=== PATIENT | female | born 1965 | race Caucasian/White ===

== ENCOUNTER → 2018-07-06 09:23 | Outpatient (CLI) | payer OTHER, SELFPAY ==
[2018-07-06 10:03] LABS: Absolute Lymphocyte Count 1.74 X10^3/ul (0.83-4.51); Basophil# 0.04 X10^3/uL; Basophil% 0.6 % (0-1); Eosinophil# 0.24 X10^3/uL; Eosinophils% 3.8 % (0-5); Hematocrit 41.4 % (37-47); Hemoglobin 13.9 g/dl (12.0-15.0); Lymphocyte # 1.74 X10^3/ul (4.0); Lymphocyte % 27.9 % (19-41); Mean Corp Hgb Conc 33.6 g/gl (32-36); Mean Corpuscular Hgb 31.3 pg (27.0-32.0); Mean Corpuscular Volume 93.2 fL (81-99); Mean Platelet Vol. 10.2 fl (6.2-12.0); Monocyte# 0.25 X10^3/uL; Neutrophil # 3.96 X10^3/uL (2.7-7.7); Neutrophil % 63.5 % (47-70); POSITIVE COUNT NO; POSITIVE DIFFERENTIAL NO; POSITIVE MORPHOLOGY NO; Platelet Count 268 K/mm3 (150-450); RBC Distribution Width CV 13.2 % (11.6-14.6); RBC Distribution Width SD 44.7 fl (35.1-43.9); Red Blood Count 4.44 M/mm3 (4.2-5.4); White Blood Count 6.2 K/mm3 (4.4-11.0)
[2018-07-06 10:48] LABS: Anion Gap 12 (5-15); BUN 17 mg/dL (7-18); Chloride 103 mmol/L (98-107); Creatinine, Serum 0.74 mg/dL (0.55-1.02); EST Glomerular Filtration Rate 87 mL/min (>60); Est Glom Filt Rate - Afr Amer 106 mL/min (>60); Glucose 242 mg/dL (74-106); Sodium Level 139 mmol/L (136-145); Thyroid Stim Hormone (TSH) 1.03 uIU/mL (0.358-3.74)
== END ==
PROVIDERS: Family Provider Family Medicine; PCP Family Medicine; Visit Provider Internal Medicine Cardiovascular Disease
DX: I48.0 Paroxysmal atrial fibrillation (principal)
CPT/HCPCS: 36415; 80048; 84443; 85025

== ENCOUNTER → 2019-09-22 | Outpatient (CLI) | payer OTHER, SELFPAY ==
[2019-09-22 10:16] VITALS: BMI 32.1
[2019-09-22 12:35] LABS: Insulin 16.2 mU/L (2.6-37.6)
[2019-09-22 12:41] LABS: AST(SGOT) 17 U/L (15-37); Alanine Aminotransfer ALT/SGPT 31 U/L (13-56); Albumin, Serum 4.1 g/dL (3.2-5.0); Alkaline Phosphatase 71 U/L (45-117); Anion Gap 9 (5-15); BUN 12 mg/dL (7-18); BUN/Creat Ratio 18.1 RATIO (10-20); Chloride 105 mmol/L (98-107); Cholesterol 198 mg/dL (200); Creatinine, Serum 0.66 mg/dL (0.55-1.02); EST Glomerular Filtration Rate 99 mL/min (>60); Est Glom Filt Rate - Afr Amer 119 mL/min (>60); Globulin 3.6 g/dL (2.2-4.2); Glucose 112 mg/dL (74-106); High Density Lipoprotein 43 mg/dL; Potassium 3.8 mmol/L (3.5-5.1); Protein, Total 7.7 g/dL (6.4-8.2); Sodium Level 142 mmol/L (136-145); Triglycerides 127 mg/dL; Very Low Density Lipoprotein 25 mg/dL (5-40)
== END | disposition home or self-care (01) ==
LOC: LAB 11:27
PROVIDERS: Family Provider Family Medicine; PCP Family Medicine; Referring Provider Internal Medicine Cardiovascular Disease; Visit Provider Internal Medicine Cardiovascular Disease
DX: I48.0 Paroxysmal atrial fibrillation (principal)
CPT/HCPCS: 36415; 80048; 80061; 80076; 83525

== ENCOUNTER 2025-07-18 09:27 | Emergency (ER) | payer OTHER, SELFPAY ==
[2025-07-18 09:28] VITALS: BP 179/96; PULSE 89; RESP 17; TEMP 36.6; O2SAT 100; BMI 34.2
--- NOTE | 2025-07-18 09:40 | EKG12_ITS ---
Test Reason : ARRYTH Blood Pressure : */* mmHG Vent. Rate : 93 BPM Atrial Rate : * BPM P-R Int : * ms QRS Dur : 92 ms QT Int : 376 ms P-R-T Axes : * 19 9 degrees QTcB Int : 467 ms Atrial fibrillation Nonspecific T wave abnormality Abnormal ECG Confirmed by DELIO RODRIGUEZ ([id number]), assistant editor AMIRAH HELLER ([id number]) on 07/19/2025 1:56:07 PM Referred By: HEATHER Confirmed By: DELIO RODRIGUEZ
--- NOTE | 2025-07-18 09:43 | EX.ED.DYSGE1 ---
HPI History of Present Illness Chief Complaint: Edema Narrative Narrative: 60-year-old female past medical history of hypertension takes lisinopril 10 mg in the morning and 10 mg at night presents with tongue swelling since this morning at around 6-6 30, approximately 3 hours ago. She relates history that she usually takes lisinopril, however she has not taken it over the last 36 hours or so. She stopped taking it Thursday evening because she has bouts of paroxysmal atrial fibrillation and thinks it is related to electrolyte imbalance. She is having runs of bradycardia and thought that maybe she was having hyperkalemia from lisinopril so she quit taking it and did not take it yesterday. She had some trigeminal neuralgia pain yesterday. This morning, she was very stressed, and she noticed the left side of her tongue was slightly raised over the other. Then approximately 30 minutes later she looked at her entire tongue was swollen. She denies any throat closing sensation or difficulty swallowing and is able to drink water, but is concerned about angioedema. [facility] Medical History (Updated 07/18/25 @ 11:22 by Ariel Enamorado MD) Obstructive sleep apnea Obesity Paroxysmal atrial fibrillation Kidney stone Home Medications ?Medication ?Instructions ?Recorded ?Last Taken ?Type cholecalciferol (vitamin D3) 25 3,000 unit PO DAILY 09/22/19 Unknown History mcg (1,000 unit) capsule magnesium glycinate 100 mg (as 400 mg PO BID 09/22/19 07/17/25 History glycinate) tablet berberine chloride 500 mg capsule 500 mg PO DAILY DM 07/18/25 07/17/25 History coenzyme Q10 30 mg capsule 30 mg PO DAILY 07/18/25 07/17/25 History lisinopril 10 mg tablet 10 mg PO BID 07/18/25 07/16/25 History metformin 1,000 mg tablet 1,000 mg PO BID 07/18/25 Unknown History omega 3 350 mg-dha 235 mg-epa 90 1 cap PO DAILY 07/18/25 07/17/25 History mg-fish oil 597 mg capsule,delay rel ([place]-3) prednisone 20 mg tablet 40 mg (2 x 20 mg) PO DAILY 5 days 07/18/25 Unknown Rx #10 tabs vitamin K2 100 mcg capsule 100 mcg PO DAILY SUPPLEMENT 07/18/25 07/17/25 History Allergy/AdvReac Type Severity Reaction Status Date / Time No Known Allergies Allergy Verified 09/22/19 10:16 Surgical History History of partial nephrectomy Hx of tonsillectomy Hx of cholecystectomy Hx of appendectomy Social History Smoking Status: Never smoker ROS ROS ED ROS Narrative Review of systems positive for tongue swelling, first left-sided then report right tongue swelling. No difficulty swallowing or breathing. No exacerbating or alleviating factors. EXAM Physical Exam Narrative Exam Narrative: Afebrile. Vital signs noted. Nontoxic-appearing. Cardiovascular examination feels regular rate and rhythm. Lungs clear to auscultation bilaterally. Abdomen is soft nontender with positive bowel sounds. Awake, alert, interactive, neurological examination nonfocal, nonlateralizing. Focused exam/HEENT examination reveals airway patent, no drooling or trismus. Neck soft and supple without meningismus. No Irvin angina. No appreciable angioedema of tongue. Const Vital Signs: 07/18/25 09:28 07/18/25 09:35 07/18/25 10:27 Temperature 97.8 F Temperature Source Temporal Pulse Rate 89 91 Respiratory Rate 17 16 Respiratory Effort Normal Respiratory Pattern Normal Blood Pressure 179/96 H 131/78 H Blood Pressure Mean 123 95 Pulse Ox 100 99 Oxygen Delivery Method Room Air Room Air 07/18/25 11:00 07/18/25 11:33 Temperature 98.7 F Temperature Source Pulse Rate 78 78 Respiratory Rate 16 16 Respiratory Effort Respiratory Pattern Blood Pressure 141/78 H 132/78 H Blood Pressure Mean 99 96 Pulse Ox 98 99 Oxygen Delivery Method Room Air MDM MDM MDM Narrative Medical decision making narrative: Concern is for angioedema versus tongue inflammation versus mild anxiety. Patient does have risk factors as she takes lisinopril. Her symptoms may not be as severe as she did not take her dosing yesterday and she is on low dose. She does have elevated blood pressure here currently. I discussed with her the use of Benadryl and steroids. She is more agreeable to oral medication. She was given 25 mg of Benadryl orally as well as 40 mg of prednisone orally. She was placed on a monitoring tech. Her who is a medic is concerned about her runs of bradycardia. Twelve-lead EKG was obtained and interpreted by myself independently. It does show atrial fibrillation that is rate controlled. No acute ST changes. No STEMI. Upon repeat examination, patient states she feels improved. She is tolerating oral medications. Regarding her atrial fibrillation, she states its paroxysmal, and that she had discussed with her international trade analyst previously and not using any medication for it including metoprolol because it makes her blood sugars elevate, and she did not tolerate Cardizem either. Additionally, with the use of anticoagulants, she states she was told just to start baby aspirin as a prophylaxis agent previously. She prefers to follow-up with cardiology regarding starting any rate control medications and anticoagulation. She will take [id number] Benadryl as needed for tongue swelling. I did write her a 5-day burst of prednisone 40 mg, and she stated that she would probably only take it as needed. At this point in time, she is motivated for discharge. I feel she can be discharged to follow-up but she was told not to take lisinopril and that she should contact her primary care provider regarding other antihypertensives. Her blood pressure did somewhat normalized to 132/78. Disposition is discharged home in stable condition. History & Record Review Discussion w/independent historian: Patient and Family () Additional record(s) reviewed:: Prior ED visit (No recent ED visits.) Discharge Plan Triage Chief Complaint: Edema ED Provider: Ariel Enamorado Dx/Rx/DC Orders Clinical Impression: Tongue swelling, Paroxysmal atrial fibrillation, Allergic reaction Instructions: ED AFIB, ED ADVERSE DRUG REACTION Allergic Prescriptions: New prednisone 20 mg tablet 40 mg PO DAILY 5 Days Qty: 10 0RF No Action magnesium glycinate 100 mg tablet 400 mg PO BID cholecalciferol (vitamin D3) 1,000 unit capsule 3,000 unit PO DAILY metformin 1,000 mg tablet 1,000 mg PO BID Patient Comments: PT HAS AT HOME, BUT HAS NOT STARTED. TRYING TO CONTROL BS WITH DIET FIRST. lisinopril 10 mg tablet 10 mg PO BID berberine chloride 500 mg capsule 500 mg PO DAILY coenzyme Q10 30 mg capsule 30 mg PO DAILY [place]-3 350 mg-235 mg- 90 mg-597 mg capsule,delayed release(DR/EC) 1 cap PO DAILY vitamin K2 100 mcg capsule 100 mcg PO DAILY Primary Care Provider: Jeff Uriostegui Referrals: Jeff Uriostegui, [Primary Care Provider] - As soon as possible Moreno Melendez MD [Med Staff - Active Staff] - As soon as possible Activity Restrictions/Additional Instructions: Avoid use of lisinopril. He will need another medication to help with your blood pressure. Call your primary care provider today. Return to the emergency department with increased tongue swelling, difficulty swallowing or breathing, new or worsening symptoms. Take the prednisone burst as directed. You may continue diphenhydramine 25 to 50 mg orally every 4-6 hours as needed for tongue swelling especially over the next 48 hours. Follow-up with cardiology regarding your atrial fibrillation. Print Language: Malagasy Disposition Disposition: Home, Self Care Discharge Date/Time: 07/18/25 11:33
[2025-07-18 10:27] VITALS: BP 131/78; PULSE 91; RESP 16; O2SAT 99
[2025-07-18 11:00] VITALS: BP 141/78; PULSE 78; RESP 16; O2SAT 98
[2025-07-18 11:33] VITALS: BP 132/78; PULSE 78; RESP 16; TEMP 37.1; O2SAT 99
== END 2025-07-18 11:33 | disposition home or self-care (01) ==
PROVIDERS: Emergency Provider Emergency Medicine; PCP Family Medicine; Visit Provider Emergency Medicine
DX: K14.8 Other diseases of tongue (principal); I48.0 Paroxysmal atrial fibrillation; R60.9 Edema, unspecified; I10 Essential (primary) hypertension; Z79.899 Other long term (current) drug therapy; Z90.5 Acquired absence of kidney; Z90.49 Acquired absence of other specified parts of digestive tract; T46.4X5A Adverse effect of angiotensin-converting-enzyme inhibitors, initial encounter
CPT/HCPCS: 93005; 99285